=== PATIENT | female | born 1975 | race Two or more races ===

== ENCOUNTER → 2016-05-13 | Outpatient (CLI) | payer OTHER ==
--- NOTE | 2016-05-13 09:33 | REPMRS ---
Patient History No known family history of cancer. Digital Mammo Screening Bilat: May 13, 2016 - Exam #: [id number] Bilateral CC and MLO view(s) were taken. Technologist: Isabel Villalobos, Technologist No prior studies available for comparison. FINDINGS: There are scattered fibroglandular densities. There is no evidence of cancer on this mammogram. ASSESSMENT: BI-RADS/ACR category 2 mammogram. Benign finding(s). Recommendation Routine screening mammogram of both breasts in 1 year (for women over age 40). This mammogram was interpreted with the aid of an FDA-approved computer-aided dectection system. Electronically Signed By: Ramo Page MD 05/13/16 0951
== END ==
LOC: M RAD 08:35
PROVIDERS: ATTEND Obstetrics & Gynecology
DX: Z12.31 Encounter for screening mammogram for malignant neoplasm of breast (principal)